=== PATIENT | female | born 1985 | race Caucasian/White ===

== ENCOUNTER 2021-09-11 15:35 | Emergency (ER) | payer OTHER ==
[2021-09-11 15:43] VITALS: TEMP 98.7
--- NOTE | 2021-09-11 16:40 | XR ---
EXAMINATION TYPE: XR shoulder complete LT DATE OF EXAM: 09/11/2021 COMPARISON: NONE HISTORY: Shoulder pain TECHNIQUE: 3 views FINDINGS: Glenohumeral joint is intact. I see no fracture nor dislocation. There are no pathologic ca lcifications. IMPRESSION: Negative left shoulder exam. No fracture.
--- NOTE | 2021-09-11 16:42 | XR ---
EXAMINATION TYPE: XR elbow limited LT DATE OF EXAM: 09/11/2021 COMPARISON: NONE HISTORY: Elbow pain TECHNIQUE: 2 views FINDINGS: There is no evidence of fracture nor dislocation. There is no sign of elbow joint effusion. There is a small spur on the olecranon process of the ulna. IMPRESSION: No acute abnormality of the left elbow.
--- NOTE | 2021-09-11 16:51 | ED ---
General Adult HPI - General Chief complaint: Extremity Injury, Upper Stated complaint: Fall, L Arm Injury Time Seen by Provider: 09/11/21 15:50 Source: patient, RN notes reviewed Mode of arrival: ambulatory Limitations: no limitations - History of Present Illness Initial comments: Patient is a 35-year-old female that presents to the emergency department complaining of left shoulder and left elbow pain after tripping and falling. She notes this happened shortly prior to arrival. She denied taking any pain medication prior to arrival. She notes that it hurts to move and touch. Patient was agitated upon initial exam and interview. Patient denied any chest pain first breath headache nausea vomiting diarrhea constipation fever fatigue chills. - Related Data Allergies Allergy/AdvReac Type Severity Reaction Status Date / Time No Known Allergies Allergy Verified 09/11/21 15:43 Review of Systems ROS Statement: Those systems with pertinent positive or pertinent negative responses have been documented in the HPI. ROS Other: All systems not noted in ROS Statement are negative. Past Medical History Past Medical History: No Reported History History of Any Multi-Drug Resistant Organisms: None Reported Past Surgical History: Section Past Psychological History: Anxiety Smoking Status: Never smoker Past Alcohol Use History: None Reported Past Drug Use History: None Reported General Exam Limitations: no limitations General appearance: alert, in no apparent distress Head exam: Present: atraumatic, normocephalic, normal inspection Eye exam: Present: normal appearance, PERRL, EOMI. Absent: scleral icterus, conjunctival injection, periorbital swelling ENT exam: Present: normal exam, mucous membranes moist Neck exam: Present: normal inspection Respiratory exam: Present: normal lung sounds bilaterally. Absent: respiratory distress, wheezes, rales, rhonchi, stridor Cardiovascular Exam: Present: regular rate, normal rhythm, normal heart sounds. Absent: systolic murmur, diastolic murmur, rubs, gallop, clicks Left Shoulder Exam: Present: normal inspection. Absent: full ROM (Secondary to pain), tenderness Upper Arm exam: Present: normal inspection, full ROM, tenderness Elbow exam: Present: normal inspection. Absent: full ROM (Secondary to pain) Neurological exam: Present: alert, oriented X3 Psychiatric exam: Present: normal affect, normal mood Skin exam: Present: warm, dry, intact, normal color. Absent: rash Course Vital Signs 09/11/21 15:40 Temperature 98.7 F Pulse Rate 96 Respiratory 18 Rate Blood Pressure 145/78 O2 Sat by Pulse 96 Oximetry Medical Decision Making - Medical Decision Making 35-year-old female complaining of left upper extremity pain after tripping and falling. X-ray the left shoulder and elbow ordered. 4 monos morphine ordered. X-ray imaging negative for any acute fractures dislocations. Patient most likely has a left upper x-ray contusion. Case discussed with Dr. Desouza - Radiology Data Radiology results: report reviewed, image reviewed Left shoulder: Negative left shoulder exam. No fracture. X-ray left elbow: Negative left elbow exam. Disposition Clinical Impression: Contusion of left upper extremity, Fall Disposition: HOME SELF-CARE Condition: Stable Instructions (If sedation given, give patient instructions): Fall Prevention (ED) Additional Instructions: Please return to the Emergency Department if symptoms worsen or any other concerns. Follow-up with primary care 1-2 days. Alternate Tylenol Motrin every 3 hours as needed for pain. Is patient prescribed a controlled substance at d/c from ED?: No Referrals: Milla Quevedo MD [Primary Care Provider] - 1-2 days Time of Disposition: 16:51
[2021-09-11 17:13] VITALS: BP 141/77; PULSE 78; RESP 16
[2021-09-11] MEDS: MORPHINE SULFATE 4 MG/ML SYRINGE IM STA (17:16)
== END 2021-09-11 17:18 | disposition home or self-care (01) ==
LOC: EC 15:35
DX: S40.022A Contusion of left upper arm, initial encounter (principal); W01.0XXA Fall on same level from slipping, tripping and stumbling without subsequent striking against object, initial encounter
CPT/HCPCS: 99284